=== PATIENT | female | born 1960 | race African-American/Black ===

== ENCOUNTER 2016-07-22 01:31 | Emergency (ER) | payer MEDICARE ==
[~2016-07-22] VITALS: Ht 162.6 cm; Wt 81.6 kg
[2016-07-22 01:45] VITALS: BP 173/118
[2016-07-22] MEDS ORDERED: DIPH25CA58 PO (02:33)
[2016-07-22] MEDS ORDERED: MOME15CR13 TP (02:33)
[2016-07-22] MEDS ORDERED: PRED50TA PO (02:33)
--- NOTE | 2016-07-22 02:33 | PHYS DOC ---
Past Medical History Past Medical History: No Pertinent History Past Surgical History: Appendectomy Alcohol Use: None Drug Use: None Adult General Chief Complaint Chief Complaint: SKIN RASH/ABSCESS HPI HPI Patient is a 56 year old female who presents here today secondary to a rash that she noticed when she came home from a . Patient reports that she went to [facility] for a and when she returned back home she noticed a rash to her abdomen arms legs and back. Patient denies any other symptomatology. Patient denies any fevers takes chills nausea vomiting diarrhea chest pain shortness of breath cough cold or rhinorrhea. Patient reports that she is highly allergic to poison patel and she's taken prednisone in the past with significant improvement. Patient is currently requesting a prescription for prednisone as well as hydrocortisone. Prior to arrival to the ER patient took Benadryl at home. Review of Systems Review of Systems Constitutional: Denies fever or chills [] Eyes: Denies change in visual acuity, redness, or eye pain [] Review of systems are negative except as documented in history of present illness portion. Allergies Allergies Allergies Coded Allergies Type Severity Reaction Last Updated Verified No Known Drug Allergies 07/22/16 No Physical Exam Physical Exam Constitutional: Well developed, well nourished, no acute distress, non-toxic appearance. [] HENT: Normocephalic, atraumatic, bilateral external ears normal, oropharynx moist, no oral exudates, nose normal. [] Eyes: PERRLA, EOMI, conjunctiva normal, no discharge. [] Neck: Normal range of motion, no tenderness, supple, no stridor. [] Cardiovascular:Heart rate regular rhythm, no murmur [] Lungs & Thorax: Bilateral breath sounds clear to auscultation [] Abdomen: Bowel sounds normal, soft, no tenderness, no masses, no pulsatile masses. [] Skin: Warm, dry, Back: No tenderness, no CVA tenderness. [] Extremities: No tenderness, no cyanosis, no clubbing, ROM intact, no edema. [] Neurologic: Alert and oriented X 3, normal motor function, normal sensory function, no focal deficits noted. [] Psychologic: Affect normal, judgement normal, mood normal. [] Skin: Patient with multiple areas of welts noted to her arms and legs and abdomen and back. Current Patient Data Vital Signs Vital Signs Date Time Temp Pulse Resp B/P Pulse Ox O2 Delivery O2 Flow Rate FiO2 07/22/16 01:45 98.4 89 16 100 Room Air 98.4 EKG EKG [] Radiology/Procedures Radiology/Procedures [] Course & Med Decision Making Course & Med Decision Making Pertinent Labs and Imaging studies reviewed. (See chart for details) [] 56-year-old female who presents here with a rash. I discussed with the patient possibility that this rash may be secondary to bedbug bites however patient and family denies that as a possibility. It is possible that this may be secondary to contact dermatitis. Patient be given a prescription for prednisone, hydrocortisone cream, and Benadryl and is to follow-up with her primary care physician for further evaluation and treatment of this rash. Dragon Disclaimer Dragon Disclaimer This electronic medical record was generated, in whole or in part, using a voice recognition dictation system. Departure Departure Impression: Primary Impression: Allergic reaction Additional Impression: Hives Disposition: 01 HOME, SELF-CARE Condition: IMPROVED Patient Instructions: Hives Scripts Diphenhydramine Hcl (Benadryl)25 Mg Capsule2 Cap PO Q6HRS PRN ITCHING #20 CAP Ref 2 Prov:GREY GALLAGHER MD 07/22/16 Mometasone Furoate (Elocon)15 Gm Cream..g.1 Suleiman TP BID #15 GM Prov:GREY GALLAGHER MD 07/22/16 Prednisone 50 Mg Tablet1 Tab PO DAILY #5 TAB Prov:GREY GALLAGHER MD 07/22/16 Problem Qualifiers GREY GALLAGHER MD Jul 22, 2016 02:33
[2016-07-22] MEDS ORDERED: PREDNISONE 20 MG TABLET PO ONE (03:00)
== END 2016-07-22 02:50 | disposition home or self-care (01) ==
LOC: ER 01:31
DX: L50.9 Urticaria, unspecified (principal); T78.40XA Allergy, unspecified, initial encounter
CPT/HCPCS: 99283; J7512